=== PATIENT | male | born 1965 | race Caucasian/White ===

== ENCOUNTER 2016-12-12 22:21 | Emergency (ER) | payer OTHER ==
[2016-12-12] MEDS ORDERED: Diazepam 10 MG/2 ML SYRINGE ONE (23:12)
[2016-12-12] MEDS ORDERED: Dexamethasone 10 MG/ML VIAL ONE (23:12)
[2016-12-12] MEDS ORDERED: Morphine Sulfate 2 MG/ML SYRINGE ONE (23:12)
[2016-12-12] MEDS ORDERED: Ondansetron HCl/PF 4 MG/2 ML Vial ONE (23:12)
[2016-12-12] MEDS ORDERED: methylPREDNISolone Sod Succ/PF 125 MG/2 ML VIAL ONE (23:12)
[2016-12-12] MEDS ORDERED: Sterile Water 10 ML ONE (23:15)
--- NOTE | 2016-12-12 23:33 | CT ---
EXAM: LUMBAR SPINE CT WITHOUT CONTRAST 12/12/16 HISTORY: Bilateral low back pain. COMPARISON: None. TECHNIQUE: Lumbar spine CT is performed without IV or intrathecal contrast. Sagittal and coronal reformatted im ages are submitted for interpretation. FINDINGS: Dependent atelectatic changes. Visualized mediastinum is unremarkable. The visualized aorta has a no rmal caliber. No retroperitoneal mass, lymphadenopathy or hematoma. There are bilateral nonobstructi ng intrarenal calculi. Bilaterally, no hydronephrosis. The visualized ureters are unremarkable. The visualized alimentary canal is unremarkable. There is sigmoid colon diverticulosis. Lumbar vertebral body height is maintained. There is no fracture. No spondylolisthesis or spondylolysis. No malalign ment on the coronal reformatted images. Spinous processes and transverse processes are intact. Limited evaluation of the contents of the central spinal canal and neural foramina. Better interroga tion cannot be performed with nonemergent lumbar spine MRI. The distal thoracic spine does not demon strate any significant central canal stenosis or significant foraminal narrowing. T12-L1, L1-L2: No significant central canal stenosis or foraminal narrowing. L2-L3: Generalized disc bulge with resultant mild central canal stenosis. Minimal posterior element hypertrophy. Bilaterally, foramina are patent. L3-L4: Generalized disc bulge with minimal posterior element hypertrophy. Minimal central canal sten osis. Bilaterally, neural foramina are patent. L4-L5: Generalized disc bulge and ligamentum flavum thickening and facet hypertrophy are noted. Ther e is mild narrowing of both subarticular zones. Presumed mass effect upon the traversing left L5 ner ve root. Mild right and mild to moderate left foraminal narrowing. L5-S1: Generalized disc bulge without any significant central canal stenosis. Mild to moderate bilat eral foraminal narrowing. IMPRESSION: Degenerative changes of the lumbar spine as above. Nonemergent lumbar spine MRI is recommended. POS: [facility]
[2016-12-13 00:14] LABS: ALT (SGPT) 29 U/L (0-55); AST (SGOT) 19 U/L (5-34); Albumin 4.2 g/dL (3.5-5.0); Alkaline Phosphatase 97 U/L (40-150); Amylase 84 U/L (25-125); Anion Gap 17 mmol/L (10-20); BUN (Urea Nitrogen) 17 mg/dL (8.9-20.6); Bilirubin, Total 0.3 mg/dL (0.2-1.2); Calc. Creatinine Clearance 0 mL/min (70-130); Calcium 9.5 mg/dL (7.8-10.44); Carbon Dioxide 22 mmol/L (22-29); Chloride 103 mmol/L (98-107); Estimated GFR-MDRD 68; Globulin 3.1 g/dL (2.4-3.5); Glucose 95 mg/dL (70-105); Lipase 51 U/L (8-78); Protein, Total 7.3 g/dL (6.0-8.3); Sodium 138 mmol/L (136-145)
[2016-12-13 00:42] LABS: White Blood Cell (WBC) Count 9.2 thou/uL (4.8-10.8)
[2016-12-13 00:43] LABS: #Basophils 0.1 thou/uL (0.0-0.2); #Eosinphils 0.1 thou/uL (0.0-0.7); #Lymphocytes 2.6 thou/uL (1.20-3.40); #Monocytes 0.7 thou/uL (0.11-0.59); #Neutrophils 5.6 thou/uL (1.40-6.50); %Basophils 1.6 % (0.0-1.0); %Eosinophils 1.4 % (0.0-10.0); %Lymphocytes 28.3 % (21.0-51.0); %Monocytes 7.9 % (0.0-10.0); %Neutrophils 60.8 % (42.0-75.0); Mean Corpuscular HGB CONC 35.2 g/dL (32.0-36.0); Mean Corpuscular Hemoglobin 32.8 pg (27.0-31.0); Mean Corpuscular Volume 93.3 fL (80.0-94.0); Mean Platelet Volume 13.2 fL (7.4-10.4); Platelet Count 153 thou/uL (130-400); RBC Distribution Width 11.2 % (11.5-14.5); Red Blood Cell (RBC) Count 5.02 mill/uL (4.70-6.10)
[2016-12-13 00:44] LABS: Hemoglobin 16.5 g/dL (14.0-18.0)
[2016-12-13 00:46] LABS: Bilirubin Negative (Negative); Blood, Urine Negative (Negative); Clarity Clear (Clear); Glucose, Urine (Dipstick) Negative (Negative); Leukocyte Negative (Negative); Nitrite Negative (Negative); Protein, Urine (Dipstick) Negative (Neg-Trace); Urobilinogen 0.2 mg/dL (0.2-1.0); pH, Urine 5.5 (5.0-9.0)
[2016-12-13 00:54] LABS: RBC/HPF 0-3 HPF (0-3)
[2016-12-13 00:58] LABS: Bacteria/HPF Rare-Few HPF (None Seen); Renal Epithelial 0-3 HPF (0-3); Squamous Epithelial 0-3 HPF (0-3); Transitional Epithelial 0-3 HPF (0-3); WBC/HPF 0-3 HPF (0-3)
== END 2016-12-13 00:27 | disposition home or self-care (01) ==
LOC: MADERS 22:21
DX: M54.41 Lumbago with sciatica, right side (principal); M54.42 Lumbago with sciatica, left side; I10 Essential (primary) hypertension; F17.210 Nicotine dependence, cigarettes, uncomplicated
CPT/HCPCS: 36415; 72131; 80053; 81001; 81015; 82150; 83690; 85025; 87086; 96374; 96375; 96376; A4216; J1100; J2270; J2405; J2930; J3360

== ENCOUNTER 2017-02-13 08:59 | Outpatient (CLI) | payer OTHER ==
--- NOTE | 2017-02-13 10:54 | RAD ---
THREE VIEWS OF THE RIGHT ANKLE: COMPARISON: 02/20/16. HISTORY: Old injury of the right ankle with pain. FINDINGS: Three views right ankle show no evidence of acute fracture or dislocation. There is a remote healed fracture of the distal fibular diaphysis. No degenerative changes are seen in the ankle joint. Th ere is fusion of the talus and calcaneus. This may be postsurgical or congenital. IMPRESSION: 1. No evidence of acute osseous abnormality. 2. Healed fracture distal fibula. 3. Talocalcaneal fusion. POS: [facility]
--- NOTE | 2017-02-13 10:56 | RAD ---
THREE VIEWS OF THE LUMBOSACRAL SPINE HISTORY: Old injury to the lower back with low back pain. COMPARISON: None. FINDINGS: Three views of the lumbosacral spine show normal height and alignment of the vertebral bodies and in tervertebral disks without fracture or subluxation. Small osteophytes are seen in the upper lumbar spine. Moderate posterior facet arthrosis is seen in the lower lumbosacral spine. Vascular calcifi cations are seen in the aorta. IMPRESSION: Moderate degenerative changes of the lumbar spine without acute osseous abnormality. POS: [facility]
== END 2017-02-13 09:00 | disposition home or self-care (01) ==
LOC: MADRAD 08:59
PROVIDERS: ATTEND Anesthesiology Pain Medicine
DX: M54.5 Low back pain (principal); M25.571 Pain in right ankle and joints of right foot; M47.816 Spondylosis without myelopathy or radiculopathy, lumbar region
CPT/HCPCS: 72100

== ENCOUNTER 2017-04-11 18:50 | Emergency (ER) | payer OTHER ==
[2017-04-11] MEDS ORDERED: Ibuprofen 800 MG TAB ONE (19:14)
[2017-04-11] MEDS ORDERED: HYDROcodone/Acetaminophen 10/325 mg Tablet ONE (19:14)
[2017-04-11] MEDS ORDERED: Diazepam 5 MG TAB ONE (19:14)
== END 2017-04-11 20:45 | disposition home or self-care (01) ==
LOC: MADERS 18:50
DX: M54.16 Radiculopathy, lumbar region (principal); I10 Essential (primary) hypertension; F17.210 Nicotine dependence, cigarettes, uncomplicated; Z79.899 Other long term (current) drug therapy
CPT/HCPCS: 96372; J2270

== ENCOUNTER 2017-08-22 17:35 | Emergency (ER) | payer OTHER ==
[2017-08-22] MEDS ORDERED: Ketorolac Tromethamine 60 MG/2 ML VIAL ONE (18:55)
[2017-08-22] MEDS ORDERED: Benzonatate 100 MG CAP ONE (18:55)
--- NOTE | 2017-08-22 19:08 | RAD ---
CHEST TWO VIEW 08/22/17 HISTORY: Cough. COMPARISON: Chest radiograph from 2007. FINDINGS: Chronic blunting of the right lateral costophrenic sulcus. No focal air space consolidation, pneumoth orax or effusion. The cardiac silhouette and mediastinal contour is within normal limits. IMPRESSION: Chronic changes. No acute intrathoracic abnormality. POS: [facility]
[2017-08-22 19:17] LABS: Bilirubin Negative (Negative); Blood, Urine Negative (Negative); Clarity Clear (Clear); Glucose, Urine (Dipstick) Negative (Negative); Leukocyte Negative (Negative); Nitrite Negative (Negative); Protein, Urine (Dipstick) Negative (Neg-Trace); Urobilinogen 0.2 mg/dL (0.2-1.0)
== END 2017-08-22 20:03 | disposition home or self-care (01) ==
LOC: MADERS 17:35
DX: B34.9 Viral infection, unspecified (principal); I10 Essential (primary) hypertension; F17.210 Nicotine dependence, cigarettes, uncomplicated; Z79.899 Other long term (current) drug therapy
CPT/HCPCS: 36415; 71046; 81003; 87040; 87149; 96372; J1885

== ENCOUNTER 2017-11-09 23:21 | Emergency (ER) | payer OTHER ==
[2017-11-10] MEDS ORDERED: Ketorolac Tromethamine 30 MG/ML VIAL ONE (00:31)
[2017-11-10 00:36] LABS: Bilirubin Negative (Negative); Blood, Urine Large (Negative); Glucose, Urine (Dipstick) Negative (Negative); Leukocyte Negative (Negative); Nitrite Negative (Negative); Protein, Urine (Dipstick) Negative (Neg-Trace); Specific Gravity, Urine 1.015 (1.005-1.030); Urobilinogen 0.2 mg/dL (0.2-1.0)
[2017-11-10 00:43] LABS: #Basophils 0.1 thou/uL (0.0-0.2); #Eosinphils 0.1 thou/uL (0.0-0.7); #Lymphocytes 1.5 thou/uL (1.20-3.40); #Monocytes 0.8 thou/uL (0.11-0.59); #Neutrophils 12.5 thou/uL (1.40-6.50); %Basophils 0.7 % (0.0-1.0); %Eosinophils 0.7 % (0.0-10.0); %Lymphocytes 9.7 % (21.0-51.0); %Neutrophils 83.8 % (42.0-75.0); Mean Corpuscular HGB CONC 33.8 g/dL (32.0-36.0); Mean Corpuscular Hemoglobin 31.4 pg (27.0-31.0); Mean Corpuscular Volume 92.9 fl (80.0-94.0); Mean Platelet Volume 11.8 fL (7.4-10.4); Platelet Count 174 thou/uL (130-400); RBC Distribution Width 11.3 % (11.5-14.5); Red Blood Cell (RBC) Count 5.09 mill/uL (4.70-6.10); White Blood Cell (WBC) Count 14.9 thou/uL (4.8-10.8)
[2017-11-10 00:44] LABS: ALT (SGPT) 23 U/L (8-55); AST (SGOT) 18 U/L (5-34); Albumin 4.5 g/dL (3.5-5.0); Alkaline Phosphatase 78 U/L (40-150); Anion Gap 14 mmol/L (10-20); BUN (Urea Nitrogen) 16 mg/dL (8.9-20.6); Bilirubin, Total 0.6 mg/dL (0.2-1.2); Calc. Creatinine Clearance 0 mL/min (70-130); Calcium 9.8 mg/dL (7.8-10.44); Carbon Dioxide 26 mmol/L (22-29); Chloride 105 mmol/L (98-107); Estimated GFR-MDRD 46; Glucose 115 mg/dL (70-105); Potassium 3.6 mmol/L (3.5-5.1); Protein, Total 7.5 g/dL (6.0-8.3); Sodium 141 mmol/L (136-145)
[2017-11-10 00:50] LABS: Clarity Hazy (Clear)
[2017-11-10 00:52] LABS: Bacteria/HPF Rare-Few HPF (None Seen); RBC/HPF GREATER THAN 50-TNTC HPF (0-3)
[2017-11-10 00:53] LABS: Cocaine Metabolite Screen Not Detected (NotDetected); Methamphetamine Detected (NotDetected); Phencyclidine (PCP) Not Detected (NotDetected); THC/Cannabinoid Screen Not Detected (NotDetected)
[2017-11-10 00:54] LABS: Amphetamine Detected (NotDetected); Barbiturates Screen Not Detected (NotDetected); Benzodiazepine Screen Not Detected (NotDetected); Medtox Control Line Valid? VALID (VALID); Methadone Not Detected (NotDetected); Opiate Screen Not Detected (NotDetected); Oxycodone Screen Not Detected (NotDetected); Tricyclic Screen Not Detected (NotDetected)
--- NOTE | 2017-11-10 08:17 | CT ---
PRELIMINARY REPORT/[facility]/EMERGENCY AFTER HOURS PROCEDURE: EXAM: CT Abdomen and Pelvis Without Intravenous Contrast EXAM DATE/TIME: Exam ordered 11/09/2017 11:54 PM CLINICAL HISTORY: 51 years old, male; Pain; Abdominal pain; Generalized; Patient HX: Rt side abd. Pain and back pain R/O stone TECHNIQUE: Axial computed tomography images of the abdomen and pelvis without intravenous contrast. All CT scans at this facility use one or more dose reduction techniques, viz.: automated exposure control; ma/kV adjustment per patient size (including targeted exams where dose is matched to indication; i.e. head); or iterative reconstruction technique. COMPARISON: No relevant prior studies available. FINDINGS: Lower thorax: No acute findings. ABDOMEN: Liver: Unremarkable. Gallbladder and bile ducts: Unremarkable. No calcified stones. No ductal dilation. Pancreas: Unremarkable. No ductal dilation. Spleen: Unremarkable. No splenomegaly. Adrenals: Unremarkable. No mass. Kidneys and ureters: 3 millimeter obstructing stone at the ureteral orifice of the right UVJ causing mild obstructive uropathy. Nonobstructing stones in the kidneys bilaterally. Stomach and bowel: Unremarkable. No obstruction. No mucosal thickening. Appendix: Normal appendix. PELVIS: Bladder: Unremarkable. No stones. Reproductive: Unremarkable as visualized. ABDOMEN and PELVIS: Intraperitoneal space: Unremarkable. No free air. No significant fluid collection. Bones/joints: No acute fracture. No dislocation. Soft tissues: Unremarkable. Vasculature: Unremarkable. No abdominal aortic aneurysm. Lymph nodes: Unremarkable. No enlarged lymph nodes. IMPRESSION: 3 millimeter obstructing stone at the ureteral orifice of the right UVJ causing mild obstructive urop athy. Thank you for allowing us to participate in the care of your patient. Dictated and Authenticated by: Tera Wang MD 11/10/2017 12:37 AM Central Time ([place] & [place]) FINAL REPORT CT ABDOMEN AND PELVIS WITHOUT CONTRAST STONE PROTOCOL: HISTORY: Right-sided pain. Lower back pain. History of renal stone. COMPARISON: None. FINDINGS: A small right posterior fat-containing diaphragmatic hernia. Mild chronic changes of the lung bases. Distal obstruction right ureteral stone. IMPRESSION: Findings and impression are concordant with the preliminary report. POS: [facility]
== END 2017-11-10 01:15 | disposition home or self-care (01) ==
LOC: MADERS 23:21
DX: N13.2 Hydronephrosis with renal and ureteral calculous obstruction (principal); I10 Essential (primary) hypertension; F17.210 Nicotine dependence, cigarettes, uncomplicated
CPT/HCPCS: 36415; 74176; 80053; 80306; 81003; 81015; 83605; 85025; 96374; J1885

== ENCOUNTER 2018-05-13 19:20 | Emergency (ER) | payer OTHER ==
[2018-05-13] MEDS ORDERED: Ketorolac Tromethamine 30 MG/ML VIAL ONE (19:53)
== END 2018-05-13 20:19 | disposition home or self-care (01) ==
LOC: MADERS 19:20
DX: G89.29 Other chronic pain (principal); M54.5 Low back pain; I10 Essential (primary) hypertension; F17.210 Nicotine dependence, cigarettes, uncomplicated
CPT/HCPCS: 96372; J1885

== ENCOUNTER 2018-07-15 13:25 | Emergency (ER) | payer OTHER ==
[2018-07-15] MEDS ORDERED: Ibuprofen 800 MG TAB ONE (14:38)
--- NOTE | 2018-07-15 14:55 | RAD ---
SACRUM AND COCCYX THREE VIEWS: History: 52-year-old male with history of lower lumbar pain after falling 8 feet. FINDINGS: No evidence for acute sacral or coccyx fracture. SI joints appear unremarkable. IMPRESSION: Unremarkable sacrum and coccyx. POS: [facility]
--- NOTE | 2018-07-15 15:21 | RAD ---
LEFT HEEL 2 VIEWS: HISTORY: A 52-year-old male with a history of left heel pain after falling down from standing. FINDINGS/IMPRESSION: No fracture, dislocation, or other significant acute osseous abnormality. POS: [facility]
== END 2018-07-15 14:55 | disposition home or self-care (01) ==
LOC: MADERS 13:25
DX: S90.32XA Contusion of left foot, initial encounter (principal); S30.0XXA Contusion of lower back and pelvis, initial encounter; I10 Essential (primary) hypertension; F17.210 Nicotine dependence, cigarettes, uncomplicated; W17.89XA Other fall from one level to another, initial encounter
CPT/HCPCS: 72220

== ENCOUNTER 2018-07-16 12:20 | Outpatient (CLI) | payer OTHER ==
--- NOTE | 2018-07-16 14:13 | RAD ---
THREE VIEWS OF THE LUMBAR SPINE: DATE: 07/16/2018. COMPARISON: 02/13/2017. HISTORY: Acute exacerbation of chronic lumbar spine pain. FINDINGS: Five lumbar-type vertebral bodies are present with intact pedicles on frontal imaging. There is anterolisthesis of L5 on S measuring approximately 5 mm. There is multilevel lower lumbar s pine facet hypertrophy. There is atherosclerotic calcification in the aortic arch. No acute osseous abnormality is seen. IMPRESSION: Degenerative changes seen within the lumbar spine as detailed above. POS: [facility]
--- NOTE | 2018-07-16 14:18 | RAD ---
THORACIC SPINE FRONTAL AND LATERAL IMAGIN07/16/2018 HISTORY: Acute exacerbation of chronic back pain. COMPARISON: None. FINDINGS: The thoracic pedicles appear intact on frontal imaging. The lateral examination demonstrates normal vertebral body height and alignment. No displaced fracture noted. IMPRESSION: No acute osseous abnormality. POS: [facility]
== END 2018-07-16 12:21 | disposition home or self-care (01) ==
LOC: MADRAD 12:20
PROVIDERS: ATTEND Family Medicine
DX: M54.5 Low back pain (principal); G89.29 Other chronic pain; M47.816 Spondylosis without myelopathy or radiculopathy, lumbar region
CPT/HCPCS: 72072; 72100

== ENCOUNTER 2021-01-02 05:09 | Emergency (ER) | payer OTHER, SELFPAY ==
[2021-01-02] MEDS ORDERED: Morphine 4 MG/ML VIAL ONE (05:24)
[2021-01-02] MEDS ORDERED: Ondansetron PF 4 MG/2 ML Vial ONE (05:24)
[2021-01-02 06:18] LABS: #Basophils 0.1 thou/uL (0.0-0.2); #Lymphocytes 1.5 thou/uL (1.20-3.40); #Monocytes 0.5 thou/uL (0.11-0.59); #Neutrophils 13.9 thou/uL (1.40-6.50); %Basophils 0.6 % (0.0-1.0); %Eosinophils 0.1 % (0.0-10.0); %Lymphocytes 9.4 % (21.0-51.0); %Monocytes 2.8 % (0.0-10.0); Hemoglobin 15.9 g/dL (14.0-18.0); Mean Corpuscular HGB CONC 31.4 g/dL (32.0-36.0); Mean Corpuscular Volume 95.5 fL (78.0-98.0); Mean Platelet Volume 10.7 fL (7.4-10.4); Platelet Count 293 thou/uL (130-400); RBC Distribution Width 11.6 % (11.5-14.5); Red Blood Cell (RBC) Count 5.32 mill/uL (4.70-6.10)
[2021-01-02] MEDS ORDERED: Nitroglycerin 2% Ointment 1 INCH/1 GM Packet ONE (06:25)
[2021-01-02 06:34] LABS: ALT (SGPT) 17 U/L (8-55); AST (SGOT) 15 U/L (5-34); Albumin 4.3 g/dL (3.5-5.0); Alkaline Phosphatase 97 U/L (40-110); Anion Gap 17 mmol/L (10-20); BUN (Urea Nitrogen) 18 mg/dL (8.4-25.7); Calc. Creatinine Clearance 0 mL/min (70-130); Calcium 9.8 mg/dL (7.8-10.44); Carbon Dioxide 27 mmol/L (22-29); Chloride 101 mmol/L (98-107); Globulin 3.2 g/dL (2.4-3.5); Glucose 123 mg/dL (70-105); Potassium 3.8 mmol/L (3.5-5.1); Protein, Total 7.5 g/dL (6.0-8.3); Sodium 141 mmol/L (136-145)
[2021-01-02] MEDS ORDERED: Sodium Chloride 0.9% 100 ML BAG ONE (07:23)
[2021-01-02 09:50] LABS: Lactic Acid 1.2 mmol/L (0.5-2.2)
[2021-01-02 11:55] LABS: Amphetamine Detected (NotDetected); Benzodiazepine Screen Detected (NotDetected); Methamphetamine Detected (NotDetected); Opiate Screen Detected (NotDetected); THC/Cannabinoid Screen Detected (NotDetected)
[2021-01-02 11:56] LABS: Barbiturates Screen Not Detected (NotDetected); Cocaine Metabolite Screen Not Detected (NotDetected); Medtox Control Line Valid? VALID (VALID); Methadone Not Detected (NotDetected); Oxycodone Screen Not Detected (NotDetected); Phencyclidine (PCP) Not Detected (NotDetected); Tricyclic Screen Not Detected (NotDetected)
[2021-01-02] MEDS ORDERED: Iopamidol 370 76% 125 ML VIAL FS ONE (13:37)
== END 2021-01-02 11:40 | disposition short-term general hospital (02) ==
LOC: MADERS 05:09
DX: I10 Essential (primary) hypertension (principal); R11.2 Nausea with vomiting, unspecified; R00.1 Bradycardia, unspecified; R07.9 Chest pain, unspecified; R06.02 Shortness of breath; F17.210 Nicotine dependence, cigarettes, uncomplicated
CPT/HCPCS: 70490; 71275; 74174; 80053; 80306; 83605; 83880; 84484; 85025; 93005; 96365; 96375; J2270; J2405; J3490; Q9967

== ENCOUNTER 2021-02-16 20:32 | Emergency (ER) | payer SELFPAY ==
[2021-02-16] MEDS ORDERED: diphenhydrAMINE 50 MG/ML VIAL ONE (21:38)
[2021-02-16] MEDS ORDERED: Metoclopramide HCl 10 MG/2 ML VIAL ONE (21:38)
[2021-02-16] MEDS ORDERED: Ketorolac Tromethamine 30 MG/ML VIAL ONE (21:38)
[2021-02-16 22:25] LABS: SARS-CoV-2 NAA Rapid Test Not Detected (NotDetected)
== END 2021-02-16 22:54 | disposition home or self-care (01) ==
LOC: MADERS 20:32
DX: J06.9 Acute upper respiratory infection, unspecified (principal); R06.02 Shortness of breath; Z20.822 Contact with and (suspected) exposure to COVID-19; I10 Essential (primary) hypertension; F17.210 Nicotine dependence, cigarettes, uncomplicated
CPT/HCPCS: 0240U; 71045; 96374; 96375; J1200; J1885; J2765